=== PATIENT | male | born 1965 | race Caucasian/White ===

== ENCOUNTER 2022-12-10 18:05 | Emergency (ER) | payer MEDICARE ==
[~2022-12-10] VITALS: Ht 177.8 cm; Wt 86.0 kg
[2022-12-10 18:15] VITALS: BP 101/67; PULSE 74; RESP 16; TEMP 98.7; O2SAT 99
== END 2022-12-11 00:05 | disposition left against medical advice (07) ==
LOC: ER 18:05
DX: Z53.21 Procedure and treatment not carried out due to patient leaving prior to being seen by health care provider (principal)
CPT/HCPCS: 99281